=== PATIENT | male | born 1955 | race Caucasian/White ===

== ENCOUNTER 2022-05-05 16:29 | Inpatient (IN) ==
[2022-05-05] MEDS ORDERED: MORPHINE 2 MG/1 ML SYRINGE IV STA (16:53)
[2022-05-05] MEDS ORDERED: ALUM/MAG/SIMETH/LIDO VISC 1:1 30 ML BOTTLE PO STA (16:53)
[2022-05-05] MEDS ORDERED: NITROGLYCERIN SL 0.4 MG TABLET SL STA (16:53)
[2022-05-05] MEDS ORDERED: ONDANSETRON 4 MG/2 ML VIAL ONE (17:08)
[2022-05-05 17:09] LABS: Basophils % 0.3 % (0.0-0.8); Eosinophils # 0.3 10*3/uL (0.0-0.87); Hematocrit 45.6 VOL% (42.0-52.0); Hemoglobin 14.8 GM/DL (14.0-18.0); Immature Granulocytes % 0.6 %; Immature Granulocytes Absolute 0.06 #; Lymphocytes # 0.9 10*3/uL (1.4-4.0); Lymphocytes % 8.7 % (21.2-54.2); Mean Corpuscular HGB Conc 32.5 GM/DL (32-36); Mean Corpuscular Volume 84.1 FL (87-102); Mean Platelet Volume 9.9 FL (9.6-12.0); Monocytes # 0.9 10*3/uL (0.11-0.8); Monocytes % 8.4 % (1.7-12.7); Platelet Count 262 T/CUMM (130-400); Red Blood Count 5.42 MC/CUMM (3.8-5.5); Red Cell Distribution Width 16.6 % (9.3-17.3); White Blood Count 10.6 T/CUMM (4-12)
[2022-05-05] MEDS ORDERED: ONDANSETRON 4 MG/2 ML VIAL IV STA (17:11)
[2022-05-05 17:20] LABS: INR 0.9; PT Patient Result 10.5 SECS (10.1-12.1)
[2022-05-05 17:27] LABS: Albumin 3.5 G/DL (3.4-5.0); Bilirubin,Total 1.5 MG/DL (0.20-1.00); Calcium 8.8 MG/DL (8.5-10.1); Osmolality,Calculated 280.4 MOS/KG (273-304); Potassium 3.9 MMOL/L (3.5-5.1); Total Protein 6.5 G/DL (6.4-8.2)
[2022-05-05] MEDS ORDERED: ONDANSETRON 4 MG/2 ML VIAL IV PRN (18:51)
[2022-05-05] MEDS ORDERED: guaiFENesin/DM ER 600-30 MG TABLET PO PRN (18:51)
[2022-05-05] MEDS ORDERED: ACETAMINOPHEN 325 MG TABLET PO PRN (18:51)
[2022-05-05] MEDS ORDERED: hydrALAZINE 20 MG/1 ML VIAL IV PRN (18:51)
[2022-05-05] MEDS ORDERED: NICOTINE 21 MG/24 HR PATCH TRANSDERM PRN (18:51)
[2022-05-05 19:33] LABS: Bacteria,Urine Occasional /HPF (Few); Mucus,Urine Occasional /LPF (Occasional); RBC,Urine 4 /HPF (0-4); Squamous Epithelial Cell,Urine Occasional /HPF (0-10); Urine Appearance Clear (Clear); Urine Color Dark Yellow (Yellow); Urine pH 5.5 (4.5-8.0)
[2022-05-05 19:34] LABS: Bilirubin,Urine Small mg/dL (Negative); Blood, Urine Negative (Negative); Glucose,Urine (UA) 100 mg/dL (Negative); Ketones,Urine Negative (Negative); Nitrite,Urine Negative (Negative); Protein,Urine Negative (Negative); Urine Specific Gravity >= 1.030 (1.001-1.035); Urine Urobilinogen >= 8.0 eU/dL (<2.0)
[2022-05-05 19:56] LABS: Hepatitis B Core IgM Quant 0.05 Index; Hepatitis B Surface Ag Quant < 0.10 Index; Hepatitis B Surface Ag Result Non-Reactive (NonReactive); Hepatitis C Virus Ab Quant 0.04 Index; Hepatitis C Virus Ab Result Non-Reactive (NonReactive)
[2022-05-05] MEDS: ENOXAPARIN 120 MG/0.8 ML SYRINGE SUBCUT SCH (20:11)
[2022-05-05] MEDS ORDERED: OXCARBAZEPINE 600 MG PO SCH (21:00)
[2022-05-05] MEDS ORDERED: TICAGRELOR 90 MG TABLET PO SCH (21:00)
[2022-05-05] MEDS ORDERED: BENZONATATE 100 MG CAPSULE PO SCH (21:00)
[2022-05-06 05:22] LABS: Basophils % 0.2 % (0.0-0.8); Eosinophils # 0.2 10*3/uL (0.0-0.87); Eosinophils % 3.6 % (0.00-10.9); Hematocrit 42.8 VOL% (42.0-52.0); Immature Granulocytes % 0.4 %; Immature Granulocytes Absolute 0.02 #; Lymphocytes # 0.6 10*3/uL (1.4-4.0); Lymphocytes % 10.6 % (21.2-54.2); Mean Corpuscular Volume 83.1 FL (87-102); Mean Platelet Volume 10.7 FL (9.6-12.0); Monocytes # 0.6 10*3/uL (0.11-0.8); Monocytes % 11.3 % (1.7-12.7); Neutrophils % 73.9 % (38.7-73.9); Platelet Count 245 T/CUMM (130-400); Red Blood Count 5.15 MC/CUMM (3.8-5.5); Red Cell Distribution Width 16.3 % (9.3-17.3); White Blood Count 5.5 T/CUMM (4-12)
[2022-05-06 05:41] LABS: Albumin 3.2 G/DL (3.4-5.0); Bilirubin,Total 3.3 MG/DL (0.20-1.00); Osmolality,Calculated 272.8 MOS/KG (273-304); Potassium 3.7 MMOL/L (3.5-5.1); Risk Ratio 3.97; Thyroid Stimulating Hormone 0.873 uIU/ml (0.358-3.74); Total Protein 6.5 G/DL (6.4-8.2); VLDL Cholesterol 16.4 MG/DL
[2022-05-06] MEDS: ENOXAPARIN 120 MG/0.8 ML SYRINGE SUBCUT SCH ×2 (08:53→20:36)
[2022-05-06] MEDS: PANTOPRAZOLE 40 MG TABLET PO SCH (08:53)
[2022-05-06] MEDS ORDERED: predniSONE 20 MG TABLET PO SCH (09:00)
[2022-05-06] MEDS ORDERED: FOLIC ACID 1 MG TABLET PO SCH (09:00)
[2022-05-06] MEDS ORDERED: EZETIMIBE 10 MG TABLET PO SCH (09:00)
[2022-05-06] MEDS: BUDESONIDE/FORMOTEROL 160-4.5 INHALER 6 GM INH SCH ×2 (14:00→20:36)
[2022-05-06] MEDS: traMADol 50 MG TABLET PO PRN ×2 (14:00→20:34)
[2022-05-06] MEDS: SOTALOL 80 MG TABLET PO SCH ×2 (14:00→20:33)
[2022-05-06] MEDS: ZALEPLON 5 MG CAPSULE PO PRN ×2 (20:33→23:10)
[2022-05-07 08:09] LABS: Basophils % 0.4 % (0.0-0.8); Eosinophils # 0.5 10*3/uL (0.0-0.87); Eosinophils % 8.8 % (0.00-10.9); Hematocrit 44.5 VOL% (42.0-52.0); Hemoglobin 14.7 GM/DL (14.0-18.0); Immature Granulocytes % 0.2 %; Immature Granulocytes Absolute 0.01 #; Lymphocytes # 0.8 10*3/uL (1.4-4.0); Lymphocytes % 13.9 % (21.2-54.2); Mean Platelet Volume 9.7 FL (9.6-12.0); Monocytes # 0.6 10*3/uL (0.11-0.8); Monocytes % 11.1 % (1.7-12.7); Neutrophils % 65.6 % (38.7-73.9); Platelet Count 224 T/CUMM (130-400); Red Cell Distribution Width 16.4 % (9.3-17.3); White Blood Count 5.7 T/CUMM (4-12)
[2022-05-07 08:39] LABS: Calcium 8.9 MG/DL (8.5-10.1); Osmolality,Calculated 273.7 MOS/KG (273-304); Potassium 3.7 MMOL/L (3.5-5.1)
[2022-05-07] MEDS: ENOXAPARIN 120 MG/0.8 ML SYRINGE SUBCUT SCH ×2 (08:43→21:53)
[2022-05-07] MEDS: PANTOPRAZOLE 40 MG TABLET PO SCH (08:43)
[2022-05-07] MEDS: SOTALOL 80 MG TABLET PO SCH ×2 (08:43→21:53)
[2022-05-07] MEDS: BUDESONIDE/FORMOTEROL 160-4.5 INHALER 6 GM INH SCH ×2 (08:44→21:53)
[2022-05-07] MEDS ORDERED: ROSUVASTATIN 10 MG TABLET PO SCH (09:00)
[2022-05-07] MEDS ORDERED: REGADENOSON 0.4 MG/5 ML SYRINGE IV ONE (09:01)
[2022-05-07 15:24] LABS: Albumin 3.3 G/DL (3.4-5.0); Bilirubin,Direct 1.91 MG/DL (0.0-0.20); Bilirubin,Indirect 0.8 MG/DL (0.0-1.0); Bilirubin,Total 2.7 MG/DL (0.20-1.00)
[2022-05-07] MEDS: traMADol 50 MG TABLET PO PRN ×2 (16:55→23:36)
[2022-05-07] MEDS: LEVOFLOXACIN INJ 250 MG/50 ML PREMIX IV SCH (16:56)
[2022-05-07] MEDS: ZALEPLON 5 MG CAPSULE PO PRN ×2 (21:53→23:35)
[2022-05-08 05:28] LABS: Basophils % 0.3 % (0.0-0.8); Eosinophils # 0.7 10*3/uL (0.0-0.87); Eosinophils % 10.2 % (0.00-10.9); Hematocrit 42.4 VOL% (42.0-52.0); Immature Granulocytes % 0.3 %; Immature Granulocytes Absolute 0.02 #; Lymphocytes # 1.2 10*3/uL (1.4-4.0); Lymphocytes % 18.6 % (21.2-54.2); Mean Corpuscular Volume 83.5 FL (87-102); Mean Platelet Volume 10.8 FL (9.6-12.0); Monocytes # 0.8 10*3/uL (0.11-0.8); Monocytes % 12.5 % (1.7-12.7); Neutrophils % 58.1 % (38.7-73.9); Platelet Count 201 T/CUMM (130-400); Red Blood Count 5.08 MC/CUMM (3.8-5.5); Red Cell Distribution Width 16.2 % (9.3-17.3); White Blood Count 6.5 T/CUMM (4-12)
[2022-05-08 06:02] LABS: Bilirubin,Total 1.2 MG/DL (0.20-1.00); Calcium 8.8 MG/DL (8.5-10.1); Osmolality,Calculated 272.8 MOS/KG (273-304); Potassium 3.6 MMOL/L (3.5-5.1); Total Protein 6.4 G/DL (6.4-8.2)
[2022-05-08] MEDS: PANTOPRAZOLE 40 MG TABLET PO SCH (12:03)
[2022-05-08] MEDS: SOTALOL 80 MG TABLET PO SCH ×2 (12:04→21:44)
[2022-05-08] MEDS: traMADol 50 MG TABLET PO PRN ×2 (12:05→21:44)
[2022-05-08] MEDS: BUDESONIDE/FORMOTEROL 160-4.5 INHALER 6 GM INH SCH ×2 (12:06→21:45)
[2022-05-08] MEDS: LEVOFLOXACIN INJ 250 MG/50 ML PREMIX IV SCH (14:18)
[2022-05-08] MEDS: traZODone 50 MG TABLET PO SCH (21:44)
[2022-05-09] MEDS ORDERED: SODIUM CHLORIDE 0.9% 1,000 ML IV SCH (05:00)
[2022-05-09 05:01] LABS: Basophils % 0.3 % (0.0-0.8); Eosinophils # 0.6 10*3/uL (0.0-0.87); Hematocrit 42.1 VOL% (42.0-52.0); Hemoglobin 13.9 GM/DL (14.0-18.0); Immature Granulocytes % 0.5 %; Immature Granulocytes Absolute 0.03 #; Lymphocytes # 1.3 10*3/uL (1.4-4.0); Lymphocytes % 19.5 % (21.2-54.2); Mean Corpuscular Volume 83.7 FL (87-102); Mean Platelet Volume 10.5 FL (9.6-12.0); Monocytes # 0.8 10*3/uL (0.11-0.8); Neutrophils % 58.7 % (38.7-73.9); Platelet Count 213 T/CUMM (130-400); Red Blood Count 5.03 MC/CUMM (3.8-5.5); Red Cell Distribution Width 16.3 % (9.3-17.3); White Blood Count 6.4 T/CUMM (4-12)
[2022-05-09 05:32] LABS: Bilirubin,Total 0.9 MG/DL (0.20-1.00); Calcium 8.9 MG/DL (8.5-10.1); Osmolality,Calculated 273.8 MOS/KG (273-304); Potassium 3.5 MMOL/L (3.5-5.1); Total Protein 6.5 G/DL (6.4-8.2)
[2022-05-09] MEDS ORDERED: HEPARIN/NACL 0.9% 2 UNITS/ML 2,000 UNIT/1,000 ML BAG IV ONE (07:19)
[2022-05-09] MEDS ORDERED: DIAZEPAM 5 MG TABLET PO ONE (07:30)
[2022-05-09] MEDS ORDERED: diphenhydrAMINE CAP 25 MG CAPSULE PO ONE (07:30)
[2022-05-09] MEDS: SOTALOL 80 MG TABLET PO SCH ×2 (09:45→21:38)
[2022-05-09] MEDS ORDERED: MIDAZOLAM 2 MG/2 ML VIAL ONE (10:21)
[2022-05-09] MEDS ORDERED: HYDROmorphone 1 MG/1 ML SYRINGE ONE (10:22)
[2022-05-09] MEDS ORDERED: diphenhydrAMINE 50 MG/1 ML VIAL ONE (10:37)
[2022-05-09] MEDS: PANTOPRAZOLE 40 MG TABLET PO SCH (11:48)
[2022-05-09] MEDS: predniSONE 20 MG TABLET PO SCH (11:48)
[2022-05-09] MEDS: BUDESONIDE/FORMOTEROL 160-4.5 INHALER 6 GM INH SCH ×2 (11:49→21:42)
[2022-05-09] MEDS: MORPHINE 2 MG/1 ML SYRINGE IV PRN (11:53)
[2022-05-09] MEDS: LEVALBUTEROL 1.25 MG/3 ML NEB RESP TX SCH ×2 (13:10→20:01)
[2022-05-09] MEDS: traZODone 50 MG TABLET PO SCH (21:39)
[2022-05-09] MEDS: ZALEPLON 5 MG CAPSULE PO PRN (21:41)
[2022-05-10] MEDS: LEVALBUTEROL 1.25 MG/3 ML NEB RESP TX SCH ×2 (02:10→07:35)
[2022-05-10 04:44] LABS: Basophils % 0.1 % (0.0-0.8); Eosinophils # 0.2 10*3/uL (0.0-0.87); Eosinophils % 2.1 % (0.00-10.9); Hematocrit 41.8 VOL% (42.0-52.0); Hemoglobin 13.5 GM/DL (14.0-18.0); Immature Granulocytes % 0.4 %; Immature Granulocytes Absolute 0.03 #; Lymphocytes # 1.3 10*3/uL (1.4-4.0); Mean Corpuscular HGB Conc 32.3 GM/DL (32-36); Mean Corpuscular Volume 85.5 FL (87-102); Mean Platelet Volume 10.3 FL (9.6-12.0); Monocytes # 0.8 10*3/uL (0.11-0.8); Monocytes % 10.9 % (1.7-12.7); Neutrophils % 69.5 % (38.7-73.9); Platelet Count 207 T/CUMM (130-400); Red Blood Count 4.89 MC/CUMM (3.8-5.5); Red Cell Distribution Width 16.2 % (9.3-17.3); White Blood Count 7.5 T/CUMM (4-12)
[2022-05-10 05:06] LABS: Albumin 2.9 G/DL (3.4-5.0); Bilirubin,Total 0.6 MG/DL (0.20-1.00); Calcium 9.2 MG/DL (8.5-10.1); Osmolality,Calculated 278.5 MOS/KG (273-304); Potassium 3.6 MMOL/L (3.5-5.1); Total Protein 6.3 G/DL (6.4-8.2)
[2022-05-10] MEDS: PANTOPRAZOLE 40 MG TABLET PO SCH (08:32)
[2022-05-10] MEDS: SOTALOL 80 MG TABLET PO SCH (08:32)
[2022-05-10] MEDS: predniSONE 20 MG TABLET PO SCH (08:32)
[2022-05-10] MEDS: BUDESONIDE/FORMOTEROL 160-4.5 INHALER 6 GM INH SCH (08:32)
[2022-05-10] MEDS: MORPHINE 2 MG/1 ML SYRINGE IV PRN (08:36)
[2022-05-10 11:36] VITALS: BP 121/75
== END 2022-05-10 11:25 | disposition home or self-care (01) | DRG 287 ==
LOC: N.ED 16:29 → N.EDINP 16:29 → SUATTDRO 18:51 → N.EDINP 20:55 → N.TELEN 21:26 → SUATTDRO 05-08 13:11
PROVIDERS: ADMIT Internal Medicine; ATTEND Internal Medicine
PROC: CLCCHCL (ICD-10-PCS; 2022-05-09 09:15)